=== PATIENT | male | born 1950 | race Caucasian/White ===

== ENCOUNTER → 2016-04-29 | Outpatient (CLI) | payer OTHER ==
[~2016-04-29] MED LIST: ATV5; OXYC-57 PO
[2016-04-29 15:07] LABS: BLOOD UREA NITROGEN 24 mg/dl (7-18); GLUCOSE 79 mg/dl (70-99)
[2016-04-29 15:08] LABS: ALT/SGPT 40 U/L (12-78); BUN/CREATININE RATIO 23.9 (10-20); CARBON DIOXIDE 27 mmol/L (21-32); CHLORIDE 105 mmol/L (98-107); CHOLESTEROL 183 mg/dl (0-200); POTASSIUM 4.1 mmol/L (3.5-5.1); SODIUM 141 mmol/L (136-145); TRIGLYCERIDES 96 mg/dl (0-150); URIC ACID 5.8 mg/dl (2.6-7.2); VERY LOW DENSITY LIPOPROT CALC 19 mg/dl
[2016-04-29 15:12] LABS: ALB/GLOB RATIO 1.3 (0.9-2); ALKALINE PHOSPHATASE 54 U/L (45-117); AST/SGOT 29 U/L (15-37); CHOLESTEROL/HDL RATIO 3.2; HDL CHOLESTEROL 58 mg/dl; LDL CHOLESTEROL CALCULATED 106 mg/dl
== END | disposition home or self-care (01) ==
LOC: C.LAB1850 13:44
PROVIDERS: ATTEND Internal Medicine
DX: Z00.00 Encounter for general adult medical examination without abnormal findings (principal); M10.9 Gout, unspecified

== ENCOUNTER → 2016-05-28 | Outpatient (CLI) | payer OTHER | END | disposition home or self-care (01) | LOC: C.LABSPEC 15:03 | PROVIDERS: ATTEND Internal Medicine | DX: L72.0 Epidermal cyst (principal) ==

== ENCOUNTER → 2016-05-30 | Outpatient (CLI) | payer OTHER ==
--- NOTE | 2016-05-30 12:47 | DIAGNOSTIC IMAGING REPORT ---
ULTRASOUND CHEST WALL CLINICAL HISTORY: Epidermoid of the skin. Cyst. Recent drainage. COMPARISON STUDY: No priors. FINDINGS: Real-time, grayscale, and color flow sonography of the ventral chest wall is performed at the indicated site of interest. There is a multiloculated complex appearing fluid collection in this region which measures approximately 5.8 x 0.5 x 1.8 cm in aggregate dimension. It is unclear if these locules communicate with each other. There is mild regional hyperemia on color imaging. IMPRESSION: Multiloculated complex fluid collection in the chest wall thickening at the indicated site of interest as above. Clinical correlation will be required. Electronically signed by: Kalia Chapman M.D. 05/30/2016 12:46 PM Dictated Date/Time: 05/30/2016 12:43 PM
== END | disposition home or self-care (01) ==
LOC: C.ULTR 12:14
PROVIDERS: ATTEND Physician Assistant
DX: L72.0 Epidermal cyst (principal)